=== PATIENT | male | born 1985 | race Caucasian/White ===

== ENCOUNTER 2020-11-11 17:56 | Emergency (ER) | payer MEDICAID, SELFPAY ==
[2020-11-11 18:02] VITALS: BP 158/80; PULSE 129; RESP 15; TEMP 37.3; O2SAT 93
--- NOTE | 2020-11-11 18:05 | ECG_ITS ---
Test Reason : OVERDOSE Blood Pressure : / mmHG Vent. Rate : 117 BPM Atrial Rate : 117 BPM P-R Int : 140 ms QRS Dur : 098 ms QT Int : 328 ms P-R-T Axes : 057 005 048 degrees QTc Int : 457 ms Sinus tachycardia Possible Left atrial enlargement Incomplete right bundle branch block Left ventricular hypertrophy Abnormal ECG No previous ECGs available Referred By: Ivone Cooln Electronically Signed By:Bill Mustafa
[2020-11-11 18:15] VITALS: BP 168/88; BP 210/106; PULSE 126; PULSE 174; RESP 14; TEMP 37.2; O2SAT 90; O2SAT 94; BMI 33.3
--- NOTE | 2020-11-11 18:16 | ED.ALCOHOL ---
HPI - Alcohol General Chief Complaint: Overdose Stated Complaint: pin point pupils Time Seen by Provider: 11/11/20 18:00 Source: patient and EMS Mode of arrival: EMS History of Present Illness HPI narrative: 34-year-old male with a past medical history of hypertension BIBA s/p found sleeping in his car with pinpoint pupils. Patient reports he was tired and pulled over his car and just fell asleep. Patient denies illicit drug/ETOH use, SI or HI. Denies trauma/falls or injury, CP/SOB, abdominal pain, nausea/vomiting, LE edema, palpitations Related Data Allergies Allergy/AdvReac Type Severity Reaction Status Date / Time No Known Allergies Allergy Unverified 04/27/20 15:19 Review of Systems Review of Systems: Constitutional: No Fever, No Chills Cardiovascular: No Chest Pain, No SOB, No Edema, No Palpitations Respiratory: No Cough, No Dyspnea Gastrointestinal: No Nausea, No Vomiting, No Abdominal pain Musculoskeletal: No joint pain, No Myalgias, No Joint Swelling Skin: No Skin Lesions, No rash Neuro: No Weakness, No Headache/head trauma Psych: No SI/HI Yes all other systems are reviewed and are negative [facility], LAT[facility] Past Medical History Attestation statement: The following information was validated with the patient. Medical History (Updated 11/11/20 @ 21:19 by KEVIN Jenkins) HTN (hypertension) Substance abuse Social History Social History Advance Directives: No Advance Directives Information Provided: No Physical Exam Vital Signs: Vital Signs: Last Vital Signs Temp 99.0 F 11/11/20 18:15 Pulse 101 H 11/11/20 20:01 Resp 18 11/11/20 20:01 BP 136/95 H 11/11/20 20:01 Pulse Ox 96 11/11/20 20:01 Body Mass Index 33.3 Const: General: cooperative, healthy appearing and awake Limitations: no limitations HENMT: Head: Yes normal to inspection Ears: hearing grossly normal bilaterally General nose exam: Normal external nose present Face and sinus: Yes normal facial exam Eyes: General: appearance normal, both eyes and all related structures Pupils: Pinpoint pupils bilaterally EOM: EOMs intact bilaterally Neck: Neck: Yes normal visual inspection and Yes no meningeal signs Resp: Effort & Inspection: normal respiratory effort Auscultation: clear to auscultation bilaterally, no rhonchi and no wheezes Cardio: Rate: tachycardic Heart sounds: S1 normal heart sound present and S2 normal heart sound present GI: Inspection: Yes normal to inspection Palpation (GI): Soft to palpation, nontender and no guarding Skin: Rashes: no rashes Wounds: no wounds Neuro: General: no meningeal signs Gait exam (Neuro): Normal gait present Extrem: General: Yes normal to inspection, Yes no pedal edema and Yes no calf tenderness Course Course Course Narrative: -labs unremarkable. Tox screen positive for opiates -heart rate improved with IVF -2119--patient awake and alert, agitated, requesting to be discharged, clinically sober, tolerating p.o. in the ED MDM - Alcohol MDM Narrative Medical decision making narrative: 34-year-old male with a past medical history of hypertension BIBA s/p found sleeping in his car with pinpoint pupils. On exam tachycardic, mildly hypertensive, bilateral reactive pinpoint pupils, nontoxic, atraumatic, DOWNS. Concern for substance abuse vs ETOH. Rule out metabolic abnormalities/ACS. Unlikely PE Plan: EKG, labs, IVF, BOOGIE, reassess Medical Records Attestation: I reviewed the patient's medical records. Lab Data Attestation: I reviewed the patient's lab results. Result diagrams: 11/11/20 18:20 11/11/20 18:20 Labs: Lab Results 11/11/20 11/11/20 11/11/20 Range/Units 18:20 18:20 18:20 WBC 9.2 (4.8-10.8) X10*3/uL RBC 4.78 (4.60-5.80) X10*6/uL Hgb 14.2 (14.0-18.0) g/dl Hct 43.1 (42-52) % MCV 90.2 (80-98) fL MCH 29.7 (27.0-33.0) pg MCHC 32.9 (31.0-36.0) g/dl RDW 12.2 (11.0-16.0) % Plt Count 280 (160-400) X10*3/uL MPV 9.3 L (9.4-12.4) fL Immature Gran % (Auto) 0.3 (0.0-0.4) % Neut % (Auto) 51.5 (45-73) % Lymph % (Auto) 36.1 (20-40) % [place] % (Auto) 10.5 (2-11) % Eos % (Auto) 1.3 (0-4) % Baso % (Auto) 0.3 (0-2) % Lymph # (Auto) 3.3 (1.2-4.9) X10*3/uL [place] # (Auto) 1.0 (0.1-1.2) X10*3/uL Eos # (Auto) 0.1 (0.0-0.4) X10*3/uL Baso # (Auto) 0.0 (0.0-0.2) X10*3/uL Abs Immat Gran (auto) 0.03 (0.00-0.03) X10*3/uL Absolute Neuts (auto) 4.7 (2.0-8.3) X10*3/uL Absolute Nucleated RBC 0.000 (0.0-0.012) X10*3/uL Nucleated RBC % (auto) 0.0 (0.0-0.2) /100WBC Hold Blue Top SEE NOTE Sodium 140 (135-145) mmol/L Potassium 4.0 (3.3-5.1) mmol/L Chloride 104 (96-108) mmol/L Carbon Dioxide 26 (22-29) mmol/L Anion Gap 14 (12-20) BUN 16 (9-16) mg/dL Creatinine 1.26 (0.5-1.4) mg/dL Estim Creat Clear Calc 83.9 Estimated GFR > 60 Random Glucose 131 H (60-115) mg/dL Calcium 9.1 (8.4-10.2) mg/dL Magnesium 2.1 (1.6-2.6) mg/dL Total Bilirubin 0.8 (0.0-1.0) mg/dL Direct Bilirubin 0.2 (0.0-0.5) mg/dL AST 32 (5-37) U/L ALT 28 (0-40) U/L Alkaline Phosphatase 114 (39-117) U/L Troponin I High Sens (<3.5-35.0) ng/L Total Protein 8.0 (6.5-8.0) g/dL Albumin 4.5 (3.5-5.0) g/dL Salicylates < 5.0 L (15-30) mg/dL Urine Opiates Screen (Not Detect) Acetaminophen < 1 (<30) mcg/mL Ur Barbiturates Screen (Not Detect) Ur Phencyclidine Scrn (Not Detect) Ur Amphetamines Screen (Not Detect) U Benzodiazepines Scrn (Not Detect) Urine Cocaine Screen (Not Detect) U Marijuana (THC) Screen (Not Detect) 11/11/20 11/11/20 Range/Units 18:20 18:51 WBC (4.8-10.8) X10*3/uL RBC (4.60-5.80) X10*6/uL Hgb (14.0-18.0) g/dl Hct (42-52) % MCV (80-98) fL MCH (27.0-33.0) pg MCHC (31.0-36.0) g/dl RDW (11.0-16.0) % Plt Count (160-400) X10*3/uL MPV (9.4-12.4) fL Immature Gran % (Auto) (0.0-0.4) % Neut % (Auto) (45-73) % Lymph % (Auto) (20-40) % [place] % (Auto) (2-11) % Eos % (Auto) (0-4) % Baso % (Auto) (0-2) % Lymph # (Auto) (1.2-4.9) X10*3/uL [place] # (Auto) (0.1-1.2) X10*3/uL Eos # (Auto) (0.0-0.4) X10*3/uL Baso # (Auto) (0.0-0.2) X10*3/uL Abs Immat Gran (auto) (0.00-0.03) X10*3/uL Absolute Neuts (auto) (2.0-8.3) X10*3/uL Absolute Nucleated RBC (0.0-0.012) X10*3/uL Nucleated RBC % (auto) (0.0-0.2) /100WBC Hold Blue Top Sodium (135-145) mmol/L Potassium (3.3-5.1) mmol/L Chloride (96-108) mmol/L Carbon Dioxide (22-29) mmol/L Anion Gap (12-20) BUN (9-16) mg/dL Creatinine (0.5-1.4) mg/dL Estim Creat Clear Calc Estimated GFR Random Glucose (60-115) mg/dL Calcium (8.4-10.2) mg/dL Magnesium (1.6-2.6) mg/dL Total Bilirubin (0.0-1.0) mg/dL Direct Bilirubin (0.0-0.5) mg/dL AST (5-37) U/L ALT (0-40) U/L Alkaline Phosphatase (39-117) U/L Troponin I High Sens 3.7 (<3.5-35.0) ng/L Total Protein (6.5-8.0) g/dL Albumin (3.5-5.0) g/dL Salicylates (15-30) mg/dL Urine Opiates Screen POSITIVE H (Not Detect) Acetaminophen (<30) mcg/mL Ur Barbiturates Screen Not Detected (Not Detect) Ur Phencyclidine Scrn Not Detected (Not Detect) Ur Amphetamines Screen Not Detected (Not Detect) U Benzodiazepines Scrn Not Detected (Not Detect) Urine Cocaine Screen Not Detected (Not Detect) U Marijuana (THC) Screen Not Detected (Not Detect) ECG Data Attestation: I personally reviewed and interpreted this ECG as follows: ECG interpretation date: 11/11/20 ECG interpretation time: 18:07 Interpretation: EKG sinus tachycardia with rate of 117. No STEMI. Incomplete right bundle-branch block Discharge Plan Discharge Clinical Impression: Substance abuse Patient Disposition: Home, Self-Care Instructions: Narcotic Use Disorder (ED) Additional Instructions: Do not take drugs or drink alcohol can kill you If you have thoughts of hurting herself or hurting others return to the ED Follow-up with her doctor Referrals: [facility] [Primary Care Provider] - 2 days Stand Alone Forms: Work/School Release
[2020-11-11] MEDS: 0.9 % Sodium Chloride 1,000 ML 999 ML IVCONT (18:24)
[2020-11-11 18:25] LABS: MANUAL DIFF FLAG NO
[2020-11-11 18:26] LABS: Basophils Percent Auto 0.3 % (0-2); Eosinophils Absolute Auto 0.1 X10*3/uL (0.0-0.4); Eosinophils Percent Auto 1.3 % (0-4); Hematocrit 43.1 % (42-52); Hemoglobin 14.2 g/dl (14.0-18.0); Imm Gran Abs Auto 0.03 X10*3/uL (0.00-0.03); Imm Gran Pct Auto 0.3 % (0.0-0.4); Lymphocytes Absolute Auto 3.3 X10*3/uL (1.2-4.9); Lymphocytes Percent Auto 36.1 % (20-40); Mean Corpuscular HGB Conc 32.9 g/dl (31.0-36.0); Mean Corpuscular Hemoglobin 29.7 pg (27.0-33.0); Mean Corpuscular Volume 90.2 fL (80-98); Mean Platelet Volume 9.3 fL (9.4-12.4); Monocytes Percent Auto 10.5 % (2-11); Neutrophils Absolute Auto 4.7 X10*3/uL (2.0-8.3); Neutrophils Percent Auto 51.5 % (45-73); Platelet Count 280 X10*3/uL (160-400); Red Blood Count 4.78 X10*6/uL (4.60-5.80); Red Cell Distribution Width 12.2 % (11.0-16.0); White Blood Count 9.2 X10*3/uL (4.8-10.8)
[2020-11-11 18:51] LABS: Acetaminophen LAB < 1 mcg/mL (<30); Alanine Aminotransferase 28 U/L (0-40); Albumin Level 4.5 g/dL (3.5-5.0); Alkaline Phosphatase 114 U/L (39-117); Anion Gap 14 (12-20); Aspartate Amino Transferase 32 U/L (5-37); Bilirubin Direct 0.2 mg/dL (0.0-0.5); Bilirubin Total 0.8 mg/dL (0.0-1.0); Blood Urea Nitrogen 16 mg/dL (9-16); Calcium 9.1 mg/dL (8.4-10.2); Carbon Dioxide 26 mmol/L (22-29); Chloride 104 mmol/L (96-108); Creatinine Clr Calc Pharmacy 83.9; Estimated Glomerular Filt Rate > 60; Glucose Random 131 mg/dL (60-115); Magnesium 2.1 mg/dL (1.6-2.6); Salicylate < 5.0 mg/dL (15-30); Sodium 140 mmol/L (135-145)
[2020-11-11 18:53] LABS: Troponin-I High Sensitivity 3.7 ng/L (<3.5-35.0)
[2020-11-11 19:19] LABS: Amphetamine Screen Urine Not Detected (Not Detect); Barbiturates, Urine Not Detected (Not Detect); Benzodiazepines Screen Urine Not Detected (Not Detect); Cannabinoid Screen Urine Not Detected (Not Detect); Cocaine Screen Urine Not Detected (Not Detect); Opiate Screen Urine POSITIVE (Not Detect); Phencyclidine Screen Urine Not Detected (Not Detect)
--- NOTE | 2020-11-11 19:56 | MHC.RECOVSUP ---
Recovery Support o Current location: [address] [place] [address] o Identified substance use concern: Opioid - Overdose <del>-</del> <del>Withdrawal</del> <del>-</del> <del>Seeking</del> <del>ATS</del> <del>(detox)</del> - Support ? Intervention: <del>o</del> <del>ATS</del> <del>bed</del> <del>search</del> <del>started/completed/in</del> <del>process</del> <del>o</del> <del>MAT</del> <del>started</del> <del>or</del> <del>to</del> <del>be</del> <del>started</del> <del>o</del> <del>Community</del> <del>resources</del> <del>provided</del> <del>o</del> <del>Harm</del> <del>reduction</del> <del>discussion</del> ? Plan: <del>o</del> <del>Referral</del> <del>to</del> <del>[facility]</del> <del>o</del> <del>Bed</del> <del>search</del> <del>in</del> <del>progress</del> <del>to</del> <del>o</del> <del>Follow</del> <del>up</del> <del>tomorrow</del> <del>o</del> <del>Patient</del> <del>awaiting</del> <del>crisis</del> <del>evaluation</del> <del>o</del> <del>Patient</del> <del>to</del> <del>follow</del> <del>up</del> <del>with</del> <del>[facility]</del> <del>after</del> <del>discharge</del> ? Additional information: I attempted to engage with pt. when I said my reasoning for wanting to speak with him, his response was I am not a drug addict. He did share that he does not suffer from homelessness, no hx of mental health and is not on MAT.
[2020-11-11 20:01] VITALS: BP 136/95; PULSE 101; RESP 18; O2SAT 96
--- NOTE | 2020-11-11 21:32 | PC.NURSE ---
PT WALKING DOWN HALLWAY, AROUND CORNER AND AWAY FROM HIS BED. PT STILL CONNECTED TO SALINE BAG AND WALKING WITH IV POLE. PT ASKED IF HE WAS LOOKING FOR THE BATHROOM, HE SAID NO, I WANT TO WATCH TV IN THE LITTLE ROOM. PT TOLD HE NEED TO RETURN TO HIS BED, THAT I NEEDED TO KEEP TRACK OF WHERE HE WAS FOR SAFETY. PT RETURNED TO HIS BED, GOT UP AND HELPED HIMSELF TO THE REFRIDGERATOR AND CRACKERS. PT TOLD TO ASK IF HE WANTED SOMETHING, BECAUSE OF CONTACT PRECAUTIONS. PT HAS BEEN ASKING TO LEAVE FOR HOURS, THEN FALLS BACK ASLEEP. PT NOW ASKING TO LEAVE, AND AGAIN ASKING TO WATCH TV IF HE CAN'T LEAVE. PT AGAIN TOLD THAT HE NEEDS TO STAY NEAR HIS BED, SO I CAN WATCH HIS RESPIRATIONS. I TOLD PT THAT I DIDN'T WANT HIM TO OVERDOSE, WHERE I COULDN'T MONITOR HIM. PT BECAME UPSET, AND STARTED YELLING I DIDN'T OVERDOSE, I FELL ASLEEP IN MY CAR. PROVIDER CLEARED HIM, AND PUT IN HIS PAPERS FOR DISCHARGE. PT UPSET AT THIS RN, BECAUSE OF THE STATEMENT THAT HE OVERDOSED. PT TOLD, THAT HIS URINE CAME BACK POSITIVE FOR OPIATES, AND HE STOPPED YELLING. SECURITY AT BEDSIDE TO SPEAK WITH PATIENT. PT DISCHARGED, LEDT WITH SECURITY. PT FULLY AWAKE AND AMBULATORY.
== END 2020-11-11 21:30 | disposition home or self-care (01) ==
PROVIDERS: Physician Assistant; Emergency Provider Emergency Medicine
DX: F11.10 Opioid abuse, uncomplicated (principal); R00.0 Tachycardia, unspecified; I10 Essential (primary) hypertension
CPT/HCPCS: 36415; 80048; 80076; 80143; 80179; 80307; 83735; 84484; 85025; 93005; 96360; 99283; 99284

== ENCOUNTER 2021-02-10 17:05 | Emergency (ER) | payer MEDICAID, SELFPAY ==
--- NOTE | 2021-02-10 | ECG_ITS ---
Test Reason : LEFT ARM NUMB Blood Pressure : / mmHG Vent. Rate : 069 BPM Atrial Rate : 069 BPM P-R Int : 146 ms QRS Dur : 102 ms QT Int : 418 ms P-R-T Axes : 032 018 028 degrees QTc Int : 447 ms Normal sinus rhythm Normal ECG When compared with ECG of 11-NOV-2020 18:07, Vent. rate has decreased BY 48 BPM Referred By: Generic ED Physician Electronically Signed By:SURESH HAINES MD
[2021-02-10 17:12] VITALS: BP 179/109; PULSE 72; RESP 18; TEMP 36.7; O2SAT 99; BMI 33.7
--- NOTE | 2021-02-10 17:44 | ED_ITS ---
HPI - General Adult General Chief complaint: General Medical Stated complaint: Shoulder Pain Time Seen by Provider: 02/10/21 17:44 Source: patient Mode of arrival: ambulatory Limitations: no limitations History of Present Illness HPI narrative: Patient with no known history of trauma to shoulder noticing pain for last 1 week especially on raising his hand above his head no motor weakness no sensory loss no chest pain Related Data Previous Rx's Medication Instructions Recorded cyclobenzaprine 10 mg PO Q8H #20 tab 02/10/21 ibuprofen 600 mg PO Q6H PRN #20 tab 02/10/21 oxycodone 5 mg PO Q6H PRN #20 tab 02/10/21 Allergies Allergy/AdvReac Type Severity Reaction Status Date / Time No Known Allergies Allergy Verified 02/10/21 17:11 Review of Systems Review of Systems: Yes all other systems are reviewed and are negative PMFSH Past Medical History Medical History HTN (hypertension) Substance abuse Social History Social History Advance Directives: No Advance Directives Information Provided: Yes Physical Exam Vital Signs: Vital Signs: Last Vital Signs Temp 98.1 F 02/10/21 17:12 Pulse 72 02/10/21 17:12 Resp 18 02/10/21 17:12 BP 179/109 H 02/10/21 17:12 Pulse Ox 99 02/10/21 17:12 Body Mass Index 33.7 Const: General: healthy appearing and comfortable HENMT: Head: Yes normal to inspection Neck: Neck: Yes normal visual inspection and Yes full ROM Resp: Effort & Inspection: normal respiratory effort Auscultation: clear to auscultation bilaterally Cardio: Rate: regular rate Rhythm: regular rhythm Heart sounds: S1 normal heart sound present and S2 normal heart sound present Peripheral puls es: Peripheral pulses 2+ throughout GI: Inspection: Yes normal to inspection Extrem: Shoulder/upper arm images: 1. tender at rotator cuff, increased pain on abduction and external rotation no motor weakness no sensory loss neurovascular intact Discharge Plan Discharge Clinical Impression: Rotator cuff (capsule) sprain Qualifiers: Encounter type: initial encounter Laterality: left Qualified Code(s): S43.422A - Sprain of left rotator cuff capsule, initial encounter Patient Disposition: Home, Self-Care Instructions: Rotator Cuff Tendinitis (ED) Additional Instructions: rest your left arm wear sling for support Pain medication and muscle relaxant as advised. Follow-up with specialist if not better Prescriptions: New cyclobenzaprine 10 mg tablet 10 mg PO Q8H Qty: 20 RF: 0 ibuprofen 600 mg tablet 600 mg PO Q6H PRN (Reason: pain) Qty: 20 RF: 0 oxycodone 5 mg tablet 5 mg PO Q6H PRN (Reason: Pain (Scale Score 7-10)) Qty: 20 RF: 0 Referrals: Lefty Champion MD [Physician] - 2 weeks
[2021-02-10] MEDS: oxyCODONE HCl Immed Release 5 MG TABLET 10 MG PO (18:04)
--- NOTE | 2021-02-10 19:13 | PC.NURSE ---
Pt was fitted with a sling and plans to follow up with ortho
== END 2021-02-10 18:00 | disposition home or self-care (01) ==
PROVIDERS: Emergency Provider Internal Medicine
DX: S43.422A Sprain of left rotator cuff capsule, initial encounter (principal); X58.XXXA Exposure to other specified factors, initial encounter; Y93.9 Activity, unspecified; Y92.9 Unspecified place or not applicable; Y99.9 Unspecified external cause status
CPT/HCPCS: 93005; 99283

== ENCOUNTER 2021-07-26 22:52 | Emergency (ER) | payer MEDICAID, SELFPAY ==
[2021-07-26 23:23] VITALS: BP 163/110; PULSE 88; RESP 16; TEMP 36.6; O2SAT 97; BMI 32.5
[2021-07-27 01:48] VITALS: BP 165/103; PULSE 80; RESP 18; TEMP 36.7; O2SAT 98
[2021-07-27] MEDS: Acetaminophen 325 MG TABLET 975 MG PO (02:47)
[2021-07-27] MEDS: oxyCODONE HCl Immed Release 5 MG TABLET 10 MG PO (02:47)
--- NOTE | 2021-07-27 02:54 | PC.NURSE ---
PT medicated for pain. PT is agitated due to long wait to receive treatment. This RN informed PT that staff was working as fast as possible to provide the necessary care.
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
== END 2021-07-27 03:48 | disposition left against medical advice (07) ==
PROVIDERS: Emergency Provider Emergency Medicine
DX: M54.50 Low back pain, unspecified (principal)
CPT/HCPCS: 99283

== ENCOUNTER 2021-11-08 04:00 | Emergency (ER) | payer MEDICAID, SELFPAY ==
[2021-11-08 04:07] VITALS: BP 165/102; PULSE 73; RESP 16; TEMP 36.9; O2SAT 100; BMI 33.5
--- NOTE | 2021-11-08 05:40 | ED.BACK ---
HPI - Back Pain/Injury General Chief Complaint: Back Pain/Injury Stated Complaint: lower back pain Time Seen by Provider: 11/08/21 05:25 Source: patient Mode of arrival: ambulatory History of Present Illness HPI Narrative: 35-year-old male without significant past medical history presents with a left lower back pain this started after he was working on his car over the weekend. Patient reports that the pain does radiate into his left gluteus but otherwise denies any fevers, chills, IVDA, groin numbness, bowel or bladder dysfunction. Related Data Previous Rx's Medication Instructions Recorded cyclobenzaprine 10 mg tablet 10 mg PO Q8H #20 tab 02/10/21 ibuprofen 600 mg tablet 600 mg PO Q6H PRN #20 tab 02/10/21 oxycodone 5 mg tablet 5 mg PO Q6H PRN #20 tab 02/10/21 ketorolac 10 mg tablet 10 mg PO Q6H PRN 5 Days #20 tab 11/08/21 Allergies Allergy/AdvReac Type Severity Reaction Status Date / Time No Known Allergies Allergy Verified 11/08/21 04:09 Review of Systems Review of Systems: Pertinent positives and negatives as stated in HPI 10 point review of systems is otherwise negative. PMFSH Past Medical History Source: nursing notes reviewed Medical History HTN (hypertension) Substance abuse Social History Social History Advance Directives: No Advance Directives Information Provided: Yes Physical Exam Vital Signs: Vital Signs: Last Vital Signs Temp 98.5 F 11/08/21 04:07 Pulse 73 11/08/21 04:07 Resp 16 11/08/21 04:07 BP 165/102 H 11/08/21 04:07 Pulse Ox 100 11/08/21 04:07 BMI result Body Mass Index 33.5 VITAL SIGNS: Reviewed. GENERAL: Well developed, well nourished, in no acute distress. HEAD: Normocephalic/atraumatic EYES: PERRLA, EOMI OROPHARYNX: no oral lesions noted, posterior pharynx clear LUNGS: Normal breath sounds. No adventitious sounds or accessory muscle use. SpO2 <100> CARDIOVASCULAR: Regular rate and rhythm without noted murmurs ABDOMEN: Soft, non-tender, non-distended with bowel sounds BACK: No CVA tenderness, no midline vertebral tenderness, noted muscular strain to the lower left lumbar region MUSCULOSKELETAL: No tenderness, deformities, or effusions noted on gross inspection. EXTREMITIES: No cyanosis, clubbing or edema. SKIN: Inspection of the skin reveals no rashes NEUROLOGIC: Alert and oriented x 4. Strength and sensation to light touch were grossly intact x 4. Course Course Course Narrative: 35-year-old male with history and clinical presentation consistent with left lower back strain and low clinical suspicion for any renal colic and doubt cauda equina or spinal abscess formation. Patient provided with combination analgesics and on re-evaluation he reports significant improvement in his discomfort and he was discharged home in stable condition. Informed by nursing that patient eloped. Discharge Plan Discharge Clinical Impression: Strain of lumbar region Patient Disposition: Elopement Instructions: Low Back Strain (ED), Back Pain (ED), Lower Back Exercises (ED) Additional Instructions: 1. Tylenol 1000 mg, orally, every 6 hours as needed for pain control. Do not exceed 4000 mg within 24 hours. 2. Lidocaine patch, these are available [id number], and should be apply to area of maximal tenderness as directed on the outside packaging. 3. Follow-up with primary care provider in the next 2-3 days for re-evaluation. Return to the ER for worsening symptoms. Prescriptions: New ketorolac 10 mg tablet 10 mg PO Q6H PRN (Reason: pain) 5 Days Qty: 20 0RF Rx Instructions: 1. Stop taking all other ibuprofen/Motrin/Naprosyn/Aleve. 2. Patient received Toradol in the emergency room. No Action cyclobenzaprine 10 mg tablet 10 mg PO Q8H Qty: 20 0RF ibuprofen 600 mg tablet 600 mg PO Q6H PRN (Reason: pain) Qty: 20 0RF oxycodone 5 mg tablet 5 mg PO Q6H PRN (Reason: Pain (Scale Score 7-10)) Qty: 20 0RF Interventions: ED Discharge Assessment Last Done: 11/08/21 06:31 Discharge Date/Time: 11/08/21 06:31
--- NOTE | 2021-11-08 06:00 | PC.NURSE ---
Per MD, pt was made verbally aware of discharge plan despite leaving ED without paperwork.
--- NOTE | 2021-11-08 06:28 | PC.NURSE ---
This RN at bedside to medicate. Pt not found in room @ this time. This RN unable to locate pt in the ED. aware.
== END 2021-11-08 06:31 | disposition left against medical advice (07) ==
PROVIDERS: Emergency Provider Student in an Organized Health Care Education/Training Program
DX: S39.012A Strain of muscle, fascia and tendon of lower back, initial encounter (principal); X58.XXXA Exposure to other specified factors, initial encounter; F19.10 Other psychoactive substance abuse, uncomplicated; I10 Essential (primary) hypertension; Y93.89 Activity, other specified; Y92.9 Unspecified place or not applicable; Y99.9 Unspecified external cause status
CPT/HCPCS: 96372; 99283; 99284

== ENCOUNTER 2022-04-24 14:58 | Emergency (ER) | payer MEDICAID, SELFPAY ==
--- NOTE | 2022-04-24 15:04 | ECG_ITS ---
Test Reason : chest pain Blood Pressure : / mmHG Vent. Rate : 073 BPM Atrial Rate : 073 BPM P-R Int : 142 ms QRS Dur : 100 ms QT Int : 408 ms P-R-T Axes : 057 001 030 degrees QTc Int : 449 ms Normal sinus rhythm Minimal voltage criteria for LVH, may be normal variant ( R in aVL ) Borderline ECG When compared with ECG of 10-FEB-2021 17:29, No significant change was found Referred By: Generic ED Physician Electronically Signed By:SURESH ROMO
[2022-04-24 15:14] VITALS: BP 139/89; PULSE 79; RESP 16; TEMP 37.1; O2SAT 99; BMI 34.8
[2022-04-24 15:23] LABS: Hematocrit 41.7 % (42.0-52.0); Hemoglobin 13.9 g/dl (14.0-18.0); Mean Corpuscular HGB Conc 33.3 g/dl (31.0-36.0); Mean Corpuscular Hemoglobin 30.1 pg (27.0-33.0); Mean Corpuscular Volume 90.3 fL (80.0-98.0); Mean Platelet Volume 9.6 fL (9.4-12.4); Platelet Count 255 X10*3/uL (160-400); Red Blood Count 4.62 X10*6/uL (4.60-5.80); Red Cell Distribution Width 12.6 % (11.0-16.0); White Blood Count 6.8 X10*3/uL (4.8-10.8)
[2022-04-24 15:37] LABS: Anion Gap 13 (12-20); Blood Urea Nitrogen 11 mg/dL (9-16); Calcium 9.4 mg/dL (8.4-10.2); Carbon Dioxide 27 mmol/L (22-29); Chloride 104 mmol/L (96-108); Creatinine Clr Calc Pharmacy 112.6; Estimated Glomerular Filt Rate > 60; Glucose Random 135 mg/dL (60-115); Potassium 4.1 mmol/L (3.3-5.1); Sodium 140 mmol/L (135-145)
[2022-04-24 15:44] LABS: Troponin-I High Sensitivity < 3.5 ng/L (<3.5-35.0)
[2022-04-24 21:09] VITALS: BP 170/88; PULSE 70; RESP 17; O2SAT 99
--- NOTE | 2022-04-24 23:05 | ED.CHESTPAIN ---
HPI - Chest Pain General Chief Complaint: Chest Pain Stated Complaint: Chest Pain Time Seen by Provider: 04/24/22 23:03 History of Present Illness HPI narrative: Patient is a 28-year-old male presented with having chest pain. The chest pain in the mid chest. Not associated with any shortness breath no diaphoresis. Patient is from home. No coughing or congestion or upper respiratory symptoms. Related Data Previous Rx's Medication Instructions Recorded cyclobenzaprine 10 mg tablet 10 mg PO Q8H #20 tabs 02/10/21 ibuprofen 600 mg tablet 600 mg PO Q6H PRN pain #20 tabs 02/10/21 oxycodone 5 mg tablet 5 mg PO Q6H PRN Pain (Scale Score 02/10/21 7-10) #20 tabs ketorolac 10 mg tablet 10 mg PO Q6H PRN pain 5 days #20 11/08/21 tabs pantoprazole 40 mg tablet,delayed 40 mg PO DAILY #14 tabs 04/25/22 release (Protonix) Allergies Allergy/AdvReac Type Severity Reaction Status Date / Time No Known Allergies Allergy Verified 11/08/21 04:09 Review of Systems Review of Systems: No fever no chills no nausea no vomiting Yes all other systems are reviewed and are negative [facility] Past Medical History Attestation statement: The following information was validated with the patient. Medical History HTN (hypertension) Substance abuse Social History Social History Advance Directives: No Advance Directives Information Provided: Yes Physical Exam Vital Signs: Vital Signs: Last Vital Signs Temp 98.7 F 04/25/22 00:00 Pulse 69 04/25/22 00:00 Resp 16 04/25/22 00:00 BP 169/95 H 04/25/22 00:00 Pulse Ox 99 04/25/22 00:00 O2 Del Method 04/25/22 00:00 BMI result Body Mass Index 34.8 Appearance: Alert. Oriented X3. No acute distress. Eyes: Pupils equal, round and reactive to light. ENT: Pharynx normal. Neck: Normal inspection. Neck supple. No lymph nodes noted. No crepitus CVS: Normal heart rate and rhythm. Pulses normal. Normal S1 and S2 Respiratory: No respiratory distress. Breath sounds normal. No Wheezing. No rales Abdomen: Soft and nontender. No rigidity. No distention. good BS x4 Skin: Skin warm and dry. Normal skin color. Normal skin turgor. Extremities: No lower extremity edema. Neurovascular intact to all extremities. No Lacerations. No Rash Neuro: Oriented X 3. No motor deficit. No sensory deficit. Moving all extermities. No slurred speech MDM - Chest Pain MDM Narrative Medical decision making narrative: Patient's EKG showed a sinus pattern heart rate is 75 MI QRS QT within normal as is no acute ST segment elevation. Patient's chest pain atypical. Question reflux. Troponin was negative. Positive history of hypertension as the only risk factor patient is 36 years old. Labs actually showed a slightly elevated sugar. Patient will need follow-up. Patient's heart score overall is less than 3. Will have patient follow-up on an outpatient basis. Will start patient on a PPI. He is in stable condition with discharge home. After Maalox patient's symptom improved. Medical Records Data Attestation: I reviewed the patient's medical records. Lab Data Attestation: I reviewed the patient's lab results. Result diagrams: 04/24/22 15:15 04/24/22 15:15 Labs: Lab Results 04/24/22 04/24/22 04/24/22 Range/Units 15:15 15:15 15:15 WBC 6.8 (4.8-10.8) X10*3/uL RBC 4.62 (4.60-5.80) X10*6/uL Hgb 13.9 L (14.0-18.0) g/dl Hct 41.7 L (42.0-52.0) % MCV 90.3 (80.0-98.0) fL MCH 30.1 (27.0-33.0) pg MCHC 33.3 (31.0-36.0) g/dl RDW 12.6 (11.0-16.0) % Plt Count 255 (160-400) X10*3/uL MPV 9.6 (9.4-12.4) fL Absolute Nucleated RBC 0.000 (0.0-0.012) X10*3/uL Nucleated RBC % (auto) 0.0 (0.0-0.2) /100WBC Sodium 140 (135-145) mmol/L Potassium 4.1 (3.3-5.1) mmol/L Chloride 104 (96-108) mmol/L Carbon Dioxide 27 (22-29) mmol/L Anion Gap 13 (12-20) BUN 11 (9-16) mg/dL Creatinine 0.91 (0.5-1.4) mg/dL Estim Creat Clear Calc 112.6 Estimated GFR > 60 Random Glucose 135 H (60-115) mg/dL Calcium 9.4 (8.4-10.2) mg/dL Troponin I High Sens < 3.5 (<3.5-35.0) ng/L Discharge Plan Discharge Clinical Impression: Chest pain, Gastritis Patient Disposition: Home, Self-Care Instructions: Chest Pain (DC), Gastritis (ED) Prescriptions: New pantoprazole [Protonix] 40 mg tablet,delayed release (DR/EC) 40 mg PO DAILY Qty: 14 0RF No Action cyclobenzaprine 10 mg tablet 10 mg PO Q8H Qty: 20 0RF ibuprofen 600 mg tablet 600 mg PO Q6H PRN (Reason: pain) Qty: 20 0RF oxycodone 5 mg tablet 5 mg PO Q6H PRN (Reason: Pain (Scale Score 7-10)) Qty: 20 0RF ketorolac 10 mg tablet 10 mg PO Q6H PRN (Reason: pain) 5 Days Qty: 20 0RF Rx Instructions: 1. Stop taking all other ibuprofen/Motrin/Naprosyn/Aleve. 2. Patient received Toradol in the emergency room. Referrals: [facility] [Primary Care Provider] -
[2022-04-24 23:27] VITALS: BP 168/98; PULSE 66; RESP 16; TEMP 37.2; O2SAT 98
[2022-04-25] VITALS: BP 169/95; PULSE 69; RESP 16; TEMP 37.1; O2SAT 99
[2022-04-25] MEDS: Aspirin 81 MG TAB.CHEW 324 MG PO (00:37)
[2022-04-25] MEDS: Magnesium Hydrox/Alum Hydrox 30 ML ORAL.SUSP PO (00:38)
== END 2022-04-25 01:19 | disposition home or self-care (01) ==
PROVIDERS: Emergency Provider Emergency Medicine Emergency Medical Services
DX: R07.89 Other chest pain (principal); K29.70 Gastritis, unspecified, without bleeding; Z79.899 Other long term (current) drug therapy
CPT/HCPCS: 36415; 80048; 84484; 85027; 93005; 99283; 99285